=== PATIENT | male | born 1945 | race Caucasian/White ===

== ENCOUNTER 2016-09-17 17:40 | Emergency (ER) | payer MEDICARE, OTHER ==
--- NOTE | 2016-09-17 18:42 | ERNOTE ---
Back Pain ER HPI Date of Service: 09/17/16 Time Seen by Provider: 09/17/16 18:28 Source: patient Exam Limitations: no limitations Immunizations: IMMUNIZATION HX Immunizations Up to Date No: unknown Allergies/Adverse Reactions: Allergies iodine Allergy (Verified 09/17/16 17:57) Home Medications: HOME MEDICATIONS Allopurinol [Zyloprim (Allopurinol)] 100 mg PO BID 02/26/16 [Last Taken Unknown] Aspirin [Aspirin EC] 81 mg PO DAILY 02/26/16 [Last Taken Unknown] Cetirizine HCl [Zyrtec] 10 mg PO HS 02/26/16 [Last Taken Unknown] Cholecalciferol (Vitamin D3) [Vitamin D3] 2,000 unit PO DAILY 02/26/16 [Last Taken Unknown] Fluticasone Furoate [Veramyst] 10 gm NS DAILY 02/26/16 [Last Taken Unknown] Gabapentin [Gralise] 600 mg PO BID 02/26/16 [Last Taken Unknown] Metoprolol Tartrate [Lopressor] 12.5 mg PO BID 02/26/16 [Last Taken Unknown] Multivitamin [One Daily Essential] 1 each PO DAILY 02/26/16 [Last Taken Unknown] Oxycodone HCl/Acetaminophen [Oxycodone-Acetaminophen 5-325] 1 each PO TID PRN [Last Taken Unknown] metFORMIN HCL [Glucophage Xr] 500 mg PO BID 02/26/16 [Last Taken Unknown] Clopidogrel Bisulfate [Plavix] 75 mg PO DAILY 04/15/16 [Last Taken Unknown] Furosemide [Lasix] 40 mg PO DAILY 04/15/16 [Last Taken Unknown] Lisinopril [Prinivil] 20 mg PO BID 04/15/16 [Last Taken Unknown] Atorvastatin Calcium [Lipitor] 40 mg PO HS 09/17/16 [Last Taken Unknown] Nitroglycerin 0.3 mg SL 09/17/16 [Last Taken Unknown] Orphenadrine Citrate [Norflex] 100 mg PO Q12H PRN #8 tablet.sa 09/17/16 [Last Taken Unknown] oxyCODONE HCL/ACETAMINOPHEN [Percocet 5 MG/325 MG] 1 tab PO Q6H PRN #8 tablet [Last Taken Unknown] Narrative: Patient presents to the ED for left back pain. He relates this pain has increased over the last 2-3 days since a pain shit in his back (SI joint) in [place]. He relates chronic back pain. No fever. PPain left low back and radiates at times down the back of his left leg. Pain worse with palpation and with movement. No new N/T/W. No abdominal pain. No fever. Denies urinary Sx or loss of bowel or bladder control. He is concerned because the Percocet he takes relieves the pain but he does not have enough to take them more freqently than every 8 hours. Timing: Reports: constant, other - waxing and waning Quality/Severity: Reports: other - can be severe at times Location of pain: Reports: other - Left low back Recent Injury?: Reports: no Possible Precipitating Factor: Reports: other - Increased after injection Modifying Factors - (Improves): Reports: nothing Modifying Factors - (Worsens): Reports: movement to right, movement to left, movement flexion Associated Symptoms: Denies: fever/chills, constipation/incontinence, nausea/ vomiting, problems urinating, difficulty walking, numbess/weakness in legs Review of Systems - Review of Systems Constitutional: Absent: fever Respiratory: Absent: shortness of breath Cardiology: Absent: chest pain Gastrointestinal/Abdominal: Absent: abdominal pain Genitourinary: Absent: dysuria, decreased urinary output Musculoskeletal: Present: See HPI Skin: Absent: rash - Patient's Past Medical History Patient History - Medical: Chronic Pain, Diabetes Type 2 Insulin Dependent Patient History - Cardiac/Respiratory: Hypertension, Hyperlipidemia, Sleep Apnea Patient History - Cancer: No Hx of Cancer Patient History - Surgical Procedures: Cardiac stent, Total Knee Replacement, Other - Family History Mother Family History - Medical: No pertinent hx - Social History Have you smoked in the past 12 months: No - Immunizations Immunizations Up to Date: No - unknown Physical Exam - Physical Exam General Appearance: Present: alert, no apparent distress Eye Exam: Normal inspection: bilateral, PERRL: bilateral Ears, Nose, Throat: Present: normal ENT inspection Neck: Present: normal inspection Respiratory: Present: no respiratory distress Cardiovascular/Chest: Present: regular rate, rhythm Gastrointestinal/Abdominal: Present: normal bowel sounds, nontender, nondistended, soft, no organomegaly Back Exam: Present: other - There is no swelling or signs of infection. No redness or warmth. There is no localizing vertebral tendenress. There is completely reproducible tendenress left low back musculature. Palpation here completely reproduces his pain. . Absent: CVA tenderness (R), CVA tenderness ( L) Neurological Exam: Present: other - No motor or snesory deficits. Sensation intact. Can stand on toes and heels. Gait stable. No evidence of cauda equina syndrome or neuro deficit. Skin Exam: Absent: skin rash ED Progress - Vital Signs Patient's Vital Signs:: I have reviewed the patient's vital signs. Vital Signs: Vital Signs 09/17/16 17:54 Temperature 36.2 C L Pulse Rate 59 L Respiratory 14 Rate Blood Pressure 162/92 O2 Sat by Pulse 97 Oximetry - Progress/Reassessment Chief Complaint: Back Pain Progress Note-Subjective: 09/17/16 19:03 I discussed options with the patient. I discussed labs/imaging, he declines this at this time. We discussed risks and benefits. At this time will give a few additional percocet and muscle relaxant with a call to his doctors tomorrow. He understands that he may return here if he changes his mind about having any testing. No indication for emergent MRI, no cauda equina syndrome or neuro deficit. 09/17/16 19:09 Departure Clinical Impression: Low back pain - Departure Disposition: Home self-care Condition: Stable Instructions: Back Pain, Adult, [id number] Additional Instructions: Rest. Call your doctor tomorrow for a re-check. Return here if your change your mind about having any of the testing we discussed, develop fever, weakness , numbness, trouble with bowel or bladder control or if your condition worsens or changes in any way. Referrals: Froylan East MD [Primary Care Provider] - Prescriptions: Orphenadrine Citrate [Norflex] 100 mg PO Q12H PRN #8 tablet.sa PRN Reason: Spasms oxyCODONE HCL/ACETAMINOPHEN [Percocet 5 MG/325 MG] 1 tab PO Q6H PRN #8 tablet PRN Reason: Pain
[2016-09-17 19:01] VITALS: BP 172/85
== END 2016-09-17 19:24 | disposition home or self-care (01) ==
LOC: ER 17:40
DX: M54.5 Low back pain (principal); E11.9 Type 2 diabetes mellitus without complications; E78.5 Hyperlipidemia, unspecified; Z95.5 Presence of coronary angioplasty implant and graft; G89.29 Other chronic pain

== ENCOUNTER 2017-02-27 15:41 | Emergency (ER) | payer MEDICARE, OTHER ==
--- OUTSIDE RECORDS SUMMARY | 2017-02-27 16:09 | XMS REPORT | Continuity of Care Document ---
:1945 Author Organization [facility] [place] [address] Care Team Providers Name Role Phone Unavailable Primary Care Provider Unavailable Source Comments This disclosure is being made pursuant to the [employer] program and maynot contain all information available regarding this patient.[facility] Active Allergies and Adverse Reactions Not on File Current Medications Be aware that medications may not be up to date as of this document. Alwaysverify current medications with the patient. Not on file Active Problems Not on file Social History Tobacco Use Types Packs/Day Years Used Date Never Assessed Plan of Care Health Maintenance Due Date Last Done Comments Retired-Pertussis Vaccine Adult 1965 Retired-Tetanus Vaccine Adult 1964 Colonoscopy 1996 Well Adult Visit 1996 Zoster Vaccine 60+ 2006 Retired-Pneumococcal 23 Vaccine-65+ yo 2011 Retired-INFLUENZA VACCINE 04/23/2015 Results from Last 3 Months Not on file
--- NOTE | 2017-02-27 16:16 | ERNOTE ---
Medical Problem HPI - General Chief Complaint: General Assessment Time Seen by Provider: 02/27/17 15:56 Source: patient Exam Limitations: no limitations - Immun/Allergies/Home Medications Immunizations: IMMUNIZATION HX Immunizations Up to Date Yes History of Influenza Vaccine Yes Hx Pneumococcal Vaccination Yes Allergies/Adverse Reactions: Allergies iodine Allergy (Verified 02/27/17 15:52) Home Medications: HOME MEDICATIONS Allopurinol [Zyloprim (Allopurinol)] 100 mg PO BID 02/26/16 [Last Taken Unknown] Aspirin [Aspirin EC] 81 mg PO DAILY 02/26/16 [Last Taken Unknown] Cetirizine HCl [Zyrtec] 10 mg PO HS 02/26/16 [Last Taken Unknown] Cholecalciferol (Vitamin D3) [Vitamin D3] 2,000 unit PO DAILY 02/26/16 [Last Taken Unknown] Fluticasone Furoate [Veramyst] 10 gm NS DAILY 02/26/16 [Last Taken Unknown] Gabapentin [Gralise] 600 mg PO BID 02/26/16 [Last Taken Unknown] Metoprolol Tartrate [Lopressor] 12.5 mg PO BID 02/26/16 [Last Taken Unknown] Multivitamin [One Daily Essential] 1 each PO DAILY 02/26/16 [Last Taken Unknown] metFORMIN HCL [Glucophage Xr] 500 mg PO BID 02/26/16 [Last Taken Unknown] Clopidogrel Bisulfate [Plavix] 75 mg PO DAILY 04/15/16 [Last Taken Unknown] Furosemide [Lasix] 40 mg PO DAILY 04/15/16 [Last Taken Unknown] Lisinopril [Prinivil] 20 mg PO BID 04/15/16 [Last Taken Unknown] Atorvastatin Calcium [Lipitor] 40 mg PO HS 09/17/16 [Last Taken Unknown] Nitroglycerin 0.3 mg SL Q5MIN PRN 09/17/16 [Last Taken Unknown] Orphenadrine Citrate [Norflex] 100 mg PO Q12H PRN #8 tablet.sa 09/17/16 [Last Taken Unknown] Naproxen [Naprosyn] 500 mg PO BID #60 tablet 02/27/17 [Last Taken Unknown] - History of Present History Narrative: Patient was working with a [employer] and it got away from him and the handle came up and struck him in the right lateral lower chest area. He complains of moderate pain as well as difficulty with twisting or lateral flexion. Timing: intermittent Severity: moderate Modifying Factors - (Worsens): Present: movement Review of Systems - Review of Systems Constitutional: Present: See HPI EYE: Present: no symptoms reported ENT: Present: no symptoms reported Respiratory: Present: other - he complains of lateral chest wall pain which is increased with motion and palpation Cardiology: Present: no symptoms reported Gastrointestinal/Abdominal: Present: no symptoms reported Genitourinary: Present: no symptoms reported Musculoskeletal: Present: no symptoms reported Skin: Present: no symptoms reported Neurological: Present: no symptoms reported Endocrine: Present: no symptoms reported Hematologic/Lymphatic: Present: no symptoms reported Psych: Present: no symptoms reported - Patient's Past Medical History Patient History - Medical: Arthritis, Chronic Pain, Diabetes Type 2 Insulin Dependent Patient History - Cardiac/Respiratory: Hypertension, Hyperlipidemia, Sleep Apnea Patient History - Cancer: No Hx of Cancer Patient History - Surgical Procedures: Cardiac stent, Total Knee Replacement, Other Patient History - Other: None - Family History Mother Family History - Medical: No pertinent hx - Social History Living Situations: home Abuse History: No History of abuse Psych History: No pertinent hx Smoking Status: Former smoker Alcohol Use: rarely Drug Use: none - Immunizations Immunizations Up to Date: Yes Hx Pneumococcal Vaccination: Yes History of Influenza Vaccine: Yes Physical Exam - Physical Exam General Appearance: Present: wd/wn, alert, moderate distress Eye Exam: Normal inspection: bilateral, PERRL: bilateral Ears, Nose, Throat: Present: normal ENT inspection, H, normal pharynx Neck: Present: normal inspection, nontender Respiratory: Present: no respiratory distress, normal breath sounds, no accessory muscle use, lungs clear, chest tenderness Cardiovascular/Chest: Present: regular rate, rhythm, no murmur, normal peripheral pulses Gastrointestinal/Abdominal: Present: normal bowel sounds, nontender, nondistended, soft, no organomegaly Rectal Exam: Present: deferred Back Exam: Present: normal inspection, normal range of motion Extremity Exam: Present: normal inspection, non-tender, no edema, normal range of motion Neurological Exam: Present: alert, oriented, normal mood/affect Skin Exam: Present: normal color, warm/dry Lymphatic Exam: Present: no adenopathy ED Progress - Vital Signs Patient's Vital Signs:: I have reviewed the patient's vital signs. Vital Signs: Vital Signs 02/27/17 15:47 Temperature 36.2 C L Pulse Rate 79 Respiratory 16 Rate Blood Pressure 131/83 O2 Sat by Pulse 95 Oximetry - X-Ray X-Ray #1 X-Ray: chest Interpretation: Interp. by me X-Ray #2 X-Ray: ribs Interpretation: Interp. by me - Progress/Reassessment Chief Complaint: General Assessment Plan - Plan Plan: I do not see any obvious fractures in the right lateral rib cage area, however fracture cannot be completely ruled out. Patient already has oxycodone at home and we will add Naprosyn to the regimen and he will see his family doctor in 7- 10 days. Departure - Departure Clinical Impression: Chest wall contusion Qualifiers: Encounter type: initial encounter Laterality: right Qualified Code(s): S20.211A - Contusion of right front wall of thorax, initial encounter Disposition: Home self-care Condition: Good Instructions: Chest Wall Pain, [id number] Referrals: Froylan East MD [Primary Care Provider] - Prescriptions: Naproxen [Naprosyn] 500 mg PO BID #60 tablet
[2017-02-27 16:40] VITALS: BP 128/72
== END 2017-02-27 16:56 | disposition home or self-care (01) ==
LOC: ER 15:41
DX: S20.211A Contusion of right front wall of thorax, initial encounter (principal); W22.8XXA Striking against or struck by other objects, initial encounter; Z87.891 Personal history of nicotine dependence